=== PATIENT | male | born 1995 | race Caucasian/White ===

== ENCOUNTER → 2024-05-24 | Outpatient (CLI) | payer OTHER, SELFPAY ==
--- NOTE | 2024-05-24 14:15 | XR_ITS ---
Examination: Testicular complete TECHNIQUE: Grayscale sonographic images testes, assessment arterial inflow venous outflow Doppler spectral analysis carful analysis Exam date 9: May 24, 2024 1430 hours INDICATIONS: Bilateral testicular swelling and pain beginning 4 months ago. FINDINGS: Right testis 5.5 cm epididymis 1.2 cm Arterial flow testicle. No testicular mass Left testis 5.5 cm epididymis 1.1 cm Arterial flow testicle. No testicular mass Moderate left varicocele Left hydrocele IMPRESSION: No testicular torsion or testicular mass Moderate left pleural
== END | disposition home or self-care (01) ==
LOC: CDIM 14:03
PROVIDERS: PCP Nurse Practitioner Family; Referring Provider Nurse Practitioner Family; Visit Provider Nurse Practitioner Family
DX: N50.819 Testicular pain, unspecified (principal)
CPT/HCPCS: 76870

== ENCOUNTER → 2024-07-14 | Outpatient (BNVA) | payer OTHER, SELFPAY | END | disposition home or self-care (01) | PROVIDERS: PCP Nurse Practitioner Family; Referring Provider Nurse Practitioner Family; Visit Provider Urology | DX: I86.1 Scrotal varices (principal); Z87.891 Personal history of nicotine dependence | CPT/HCPCS: 81003; 99203; G0463 ==

== ENCOUNTER 2024-08-01 08:39 | Emergency (ER) | payer OTHER, SELFPAY ==
[2024-08-01 09:06] VITALS: BP 121/76; PULSE 57; RESP 18; TEMP 36.7; O2SAT 98; BMI 20.9
--- NOTE | 2024-08-01 09:21 | XR_ITS ---
Examination: Abdomen sonogram, complete Date and time of exam: August 01, 2024 1030 hours INDICATIONS: Pelvic abdominal pain beginning one week ago. Technique: Multiple real-time grayscale transabdominal sonographic images of the abdomen have been obtained. Findings: Normal gallbladder Normal common bile duct 0.2 cm Pancreatic head 1.7 cm Aorta not enlarged Liver 14.3 cm fatty infiltration Normal hepatopedal portal venous flow Patent IVC Right kidney 11.1 cm cortex 1.5 cm Left kidney 10.9 cm cortex 1.7 cm Spleen 9.8 cm IMPRESSION: Fatty liver, otherwise negative examination
--- NOTE | 2024-08-01 09:21 | XR_ITS ---
Examination: Testicular sonography complete TECHNIQUE: Grayscale sonographic images testes, assessment arterial inflow venous outflow Doppler spectral analysis carful analysis Date and time: August 01, 2024 0945 hours INDICATIONS: Onset left testicular swelling and pain beginning today. FINDINGS: Right testis 4.8 cm epididymis 11 mm Arterial flow testicle. No testicular mass Moderate right varicocele Left testis 4.9 cm epididymis 1.5 cm Arterial flow testicle. No testicular mass Moderate varicocele IMPRESSION: No testicular torsion or testicular mass Moderate bilateral varicoceles
--- NOTE | 2024-08-01 09:21 | PD.EDRME ---
Rapid Medical Screening Exam RME Arrival date/time: 08/01/24 08:39 28-year-old male with a history of a left varicocelectomy presents to the emergency room with a chief complaint of bilateral testicular swelling and scrotal inguinal tenderness that radiates to his lower abdomen and pelvic area x 1 week I have greeted and performed a focused initial assessment of this patient. A comprehensive ED assessment and evaluation of the patient, analysis of all test results, and completion of the medical decision making process will be conducted by additional ED providers. Chief Complaint: Abdominal Pain Time Seen by Provider: 08/01/24 09:05 Vital signs: Vital Signs Temperature 98.0 F 08/01/24 09:06 Pulse Rate 57 L 08/01/24 09:06 Respiratory Rate 18 08/01/24 09:06 Blood Pressure 121/76 08/01/24 09:06 Pulse Oximetry (%) 98 08/01/24 09:06 Oxygen Delivery Method Room Air 08/01/24 09:06 Vital signs reviewed by provider: Yes
[2024-08-01] MEDS: KETOROLAC INJ 60 MG/2 ML VIAL 30 MG IM (09:39)
[2024-08-01 09:47] LABS: Collection Type, Urine Clean Catch
[2024-08-01 09:53] LABS: Basophils # (Auto) 0.1 Thou/mm3 (0.0-0.2); Basophils % (Auto) 1 % (0-2.5); Eosinophils # (Auto) 0.2 Thou/mm3 (0.0-0.5); Eosinophils % (Auto) 2 % (0-10); Hematocrit 48.2 % (41.0-53.0); Hemoglobin 15.9 g/dL (13.5-16.0); Immature Granulocytes % (Auto) 0 % (0-0); Immature Granulocytes Auto 0.02 Thou/mm3 (0.00-0.00); Lymphocytes # (Auto) 1.6 Thou/mm3 (1.0-4.8); Lymphocytes % (Auto) 17 % (10-50); Mean Corpuscular Hemoglobin 29.8 pg (25.0-35.0); Mean Corpuscular Volume 90 fL (80-100); Monocytes # (Auto) 0.6 Thou/mm3 (0.0-0.8); Monocytes % (Auto) 7 % (0-12); Neutrophils # (Auto) 6.6 Thou/mm3 (1.8-7.7); Neutrophils % (Auto) 73 % (37-80); Nucleated Red Blood Cell % 0 /100 WBC (0); Platelet Count 148 Thou/mm3 (140-440); Red Blood Count 5.33 Miln/mm3 (4.50-5.90); White Blood Count 9.1 Thou/mm3 (3.8-10.6)
[2024-08-01 10:13] LABS: Alanine Aminotransferase 16 U/L (10-49); Albumin, Serum 4.6 gm/dL (3.5-5.0); Albumin/Globulin Ratio 1.8 (1.2-2.2); Alkaline Phosphatase 65 U/L (46-116); Anion Gap 7 (7-16); Aspartate Amino Transferase 21 U/L (0-34); BUN/Creatinine Ratio 15 Ratio (12-20); Bilirubin,Total 0.6 mg/dL (0.3-1.2); Blood Urea Nitrogen 17 mg/dL (9-23); Calcium 9.1 mg/dL (8.3-10.6); Calcium (Corrected) 9.1 mg/dL (8.5-10.1); Chloride 107 mMol/L (98-107); Creatinine (Component) 1.1 mg/dL (0.6-1.3); Estimated Creatinine Clearance 98.5 mL/min (>60); Globulin 2.6 gm/dL (2.3-3.5); Glucose 102 mg/dL (74-106); Osmolality,Calculated 284 (275-295); Potassium 4.6 mMol/L (3.4-5.1); Sodium 142 mMol/L (136-145); Total Protein 7.2 gm/dL (5.7-8.2); eGFR > 60 See Note
[2024-08-01 11:17] LABS: Amorphous Crystals,Urine Present (Absent); Bilirubin,Urine Negative (Negative); Blood,Urine Negative (Negative); Clarity,Urine Turbid (Clear/Hazy); Color,Urine Yellow (Lt Yel-Yel); Culture Indicated,Urine Not Indicated; Glucose, Urine Negative (Negative); Ketones,Urine Negative (Negative); Leukocyte Esterase,Urine Negative (Negative); Nitrite,Urine Negative (Negative); Protein,Urine 1+ (Neg - Trace); RBC,Urine 1 /hpf (0-3); Specific Gravity,Urine 1.039 (1.001-1.035); Squamous Epithelial Cell,Urine < 1 /hpf (0-5); Urobilinogen,Urine Negative mg/dL (0.0-1.0); WBC,Urine < 1 /hpf (0-5)
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
[2024-08-01 13:25] VITALS: BP 124/82; PULSE 78
== END 2024-08-01 13:26 | disposition home or self-care (01) ==
PROVIDERS: Nurse Practitioner Family; Emergency Provider Family Medicine; PCP Nurse Practitioner Family
DX: I86.1 Scrotal varices (principal); K76.0 Fatty (change of) liver, not elsewhere classified
CPT/HCPCS: 36415; 76700; 76870; 80053; 81001; 85025; 96372; 99284; J1885